=== PATIENT | male | born 1970 | race Caucasian/White ===

== ENCOUNTER 2025-04-08 09:12 | Emergency (ER) | payer BC ==
[2025-04-08] MEDS: Tetracaine HCl/PF 0.5% 4 ML Bottle EYEBOTH ONE (10:52)
== END 2025-04-08 11:45 | disposition home or self-care (01) ==
LOC: MW.ED 09:12
DX: H57.11 Ocular pain, right eye (principal); Z79.899 Other long term (current) drug therapy
CPT/HCPCS: 99283; A9270; J3490